=== PATIENT | female | born 1995 | race Caucasian/White ===

== ENCOUNTER 2019-03-11 14:52 | Emergency (ER) | payer BC ==
[2019-03-11] MEDS ORDERED: Lactated Ringers 1,000 ML IV ONE (16:09)
[2019-03-11] MEDS ORDERED: Sodium Chloride 0.9% 10 ML Syringe FLUSH PRN (16:09)
[2019-03-11] MEDS ORDERED: Ondansetron 4 MG/2 ML SDV IVPUSH ONE (16:09)
[2019-03-11] MEDS ORDERED: Famotidine 20 MG/2 ML SDV IVPUSH ONE (16:09)
--- NOTE | 2019-03-11 18:14 | EDM.PDOC ---
ED HPI GENERAL MEDICAL PROBLEM - General Chief Complaint: Gastrointestinal Problem Stated Complaint: VOMITING Time Seen by Provider: 03/11/19 16:18 Source of Information: Reports: Patient History Limitations: Reports: No Limitations - History of Present Illness INITIAL COMMENTS - FREE TEXT/NARRATIVE: 24 year old female presents for evaluation and treatment of nausea and vomiting. Reports symptoms started 3 days ago. Stared with decreased appetite, bloating, nausea and vomiting. At this time she is having nausea, vomiting, abdominal cramping and diarrhea. Reports one episode of diarrhea today, no blood in her stool. She state she is unable to keep anything down at this point. Has been taking tylenol and motrin for the abdominal pain. No ill contacts. No recent antibiotics. No recent travel. Unsure of LMP, is on OCPs and skips placebo pills. PCP is Dr. Newman - Related Data Allergies Allergy/AdvReac Type Severity Reaction Status Date / Time No Known Allergies Allergy Verified 03/11/19 15:18 Home Meds: Home Meds Control. 03/11/19 [History] Citalopram Hydrobromide [Celexa] 20 mg PO DAILY 03/11/19 [History] Loratadine [Claritin] 10 mg PO DAILY PRN 03/11/19 [History] Ondansetron [Zofran ODT] 4 mg PO Q6H PRN #15 tab.dis 03/11/19 [Rx] Past Medical History - Past Health History Medical/Surgical History: Denies Medical/Surgical History Social & Family History - Tobacco Use Smoking Status *Q: Never Smoker ED ROS GENERAL - Review of Systems Review Of Systems: See Below Constitutional: Reports: Fever (subjective), Decreased Appetite GI/Abdominal: Reports: Abdominal Pain (reports cramping), Diarrhea, Nausea, Vomiting. Denies: Bloody Stool : Reports: No Symptoms ED EXAM, GI/ABD - Physical Exam Exam: See Below Exam Limited By: No Limitations General Appearance: Alert, WD/WN, No Apparent Distress Throat/Mouth: Normal Inspection, Normal Voice, No Airway Compromise Neck: Normal Inspection Respiratory/Chest: No Respiratory Distress, Lungs Clear, Normal Breath Sounds Cardiovascular: Normal Peripheral Pulses, Regular Rate, Rhythm, No Murmur GI/Abdominal Exam: Soft, Non-Tender, No Distention, Abnormal Bowel Sounds ( hyperactive), Other (no pain at [place], negative psosas and obturator signs) Neurological: Alert, Oriented, Normal Cognition Psychiatric: Normal Affect, Normal Mood Skin Exam: Warm, Dry, Normal Color Course - Vital Signs Last Recorded V/S: Last Vital Signs Temp 98.1 F 03/11/19 15:19 Pulse 83 03/11/19 15:19 Resp 16 03/11/19 15:19 BP 117/80 03/11/19 15:19 Pulse Ox 96 03/11/19 15:19 - Orders/Labs/Meds Labs: Laboratory Tests 03/11/19 03/11/19 03/11/19 Range/Units 16:40 16:40 16:40 WBC 5.81 (3.98-10.04) K/mm3 RBC 4.23 (3.98-5.22) M/mm3 Hgb 13.6 (11.2-15.7) gm/L Hct 38.6 (34.1-44.9) % MCV 91.3 (79.4-94.8) fl MCH 32.2 (25.6-32.2) pg MCHC 35.2 (32.2-35.5) g/dl RDW Std Deviation 37.2 (36.4-46.3) fL Plt Count 351 (182-369) K/mm3 MPV 9.4 (9.4-12.3) fl Neut % (Auto) 39.8 (34.0-71.1) % Lymph % (Auto) 35.1 (19.3-51.7) % [place] % (Auto) 16.9 H (4.7-12.5) % Eos % (Auto) 7.4 H (0.7-5.8) Baso % (Auto) 0.3 (0.1-1.2) % Neut # (Auto) 2.31 (1.56-6.13) K/mm3 Lymph # (Auto) 2.04 (1.18-3.74) K/mm3 [place] # (Auto) 0.98 H (0.24-0.36) K/mm3 Eos # (Auto) 0.43 H (0.04-0.36) K/mm3 Baso # (Auto) 0.02 (0.01-0.08) K/mm3 Manual Slide Review Normal smear Sodium 139 (136-145) mEq/L Potassium 3.5 (3.5-5.1) mEq/L Chloride 104 (98-107) mEq/L Carbon Dioxide 23 (21-32) mEq/L Anion Gap 15.5 H (5-15) BUN 10 (7-18) mg/dL Creatinine 0.8 (0.55-1.02) mg/dL Est Cr Clr Drug Dosing 99.25 mL/min Estimated GFR (MDRD) > 60 (>60) mL/min BUN/Creatinine Ratio 12.5 L (14-18) Glucose 96 (74-106) mg/dL Calcium 8.6 (8.5-10.1) mg/dL Magnesium 1.8 (1.8-2.4) mg/dl Total Bilirubin 0.1 L (0.2-1.0) mg/dL AST 33 (15-37) U/L ALT 38 (14-59) U/L Alkaline Phosphatase 54 (46-116) U/L Total Protein 6.5 (6.4-8.2) g/dl Albumin 3.1 L (3.4-5.0) g/dl Globulin 3.4 gm/dL Albumin/Globulin Ratio 0.9 L (1-2) Lipase 168 (73-393) U/L HCG, Qual Negative (NEGATIVE) Urine Color (Yellow) Urine Appearance (Clear) Urine pH (5.0-8.0) Ur Specific [place] (1.005-1.030) Urine Protein (Negative) Urine Glucose (UA) (Negative) Urine Ketones (Negative) Urine Occult Blood (Negative) Urine Nitrite (Negative) Urine Bilirubin (Negative) Urine Urobilinogen (0.2-1.0) Ur Leukocyte Esterase (Negative) Urine RBC (0-5) /hpf Urine WBC (0-5) /hpf Ur Squamous Epith Cells (0-5) /hpf Urine Bacteria (FEW) /hpf Urine Mucus (FEW) /hpf 03/11/19 Range/Units 17:38 WBC (3.98-10.04) K/mm3 RBC (3.98-5.22) M/mm3 Hgb (11.2-15.7) gm/L Hct (34.1-44.9) % MCV (79.4-94.8) fl MCH (25.6-32.2) pg MCHC (32.2-35.5) g/dl RDW Std Deviation (36.4-46.3) fL Plt Count (182-369) K/mm3 MPV (9.4-12.3) fl Neut % (Auto) (34.0-71.1) % Lymph % (Auto) (19.3-51.7) % [place] % (Auto) (4.7-12.5) % Eos % (Auto) (0.7-5.8) Baso % (Auto) (0.1-1.2) % Neut # (Auto) (1.56-6.13) K/mm3 Lymph # (Auto) (1.18-3.74) K/mm3 [place] # (Auto) (0.24-0.36) K/mm3 Eos # (Auto) (0.04-0.36) K/mm3 Baso # (Auto) (0.01-0.08) K/mm3 Manual Slide Review Sodium (136-145) mEq/L Potassium (3.5-5.1) mEq/L Chloride (98-107) mEq/L Carbon Dioxide (21-32) mEq/L Anion Gap (5-15) BUN (7-18) mg/dL Creatinine (0.55-1.02) mg/dL Est Cr Clr Drug Dosing mL/min Estimated GFR (MDRD) (>60) mL/min BUN/Creatinine Ratio (14-18) Glucose (74-106) mg/dL Calcium (8.5-10.1) mg/dL Magnesium (1.8-2.4) mg/dl Total Bilirubin (0.2-1.0) mg/dL AST (15-37) U/L ALT (14-59) U/L Alkaline Phosphatase (46-116) U/L Total Protein (6.4-8.2) g/dl Albumin (3.4-5.0) g/dl Globulin gm/dL Albumin/Globulin Ratio (1-2) Lipase (73-393) U/L HCG, Qual (NEGATIVE) Urine Color Yellow (Yellow) Urine Appearance Slt cloudy H (Clear) Urine pH 6.0 (5.0-8.0) Ur Specific [place] 1.025 (1.005-1.030) Urine Protein 1+ H (Negative) Urine Glucose (UA) Negative (Negative) Urine Ketones Negative (Negative) Urine Occult Blood 1+ H (Negative) Urine Nitrite Negative (Negative) Urine Bilirubin Negative (Negative) Urine Urobilinogen 0.2 (0.2-1.0) Ur Leukocyte Esterase Negative (Negative) Urine RBC 5-10 H (0-5) /hpf Urine WBC 0-5 (0-5) /hpf Ur Squamous Epith Cells 5-10 H (0-5) /hpf Urine Bacteria Few (FEW) /hpf Urine Mucus Moderate H (FEW) /hpf Meds: Medications Discontinued Medications Generic Name Dose Route Start Last Admin Trade Name Freq PRN Reason Stop Dose Admin Famotidine 20 mg 03/11/19 16:09 03/11/19 16:44 Pepcid IVPUSH 03/11/19 16:10 20 mg ONETIME ONE Administration Lactated Ringer's 1,000 mls @ 999 mls/hr 03/11/19 16:09 03/11/19 16:40 Ringers, Lactated IV 03/11/19 17:09 999 mls/hr .BOLUS ONE Administration Ondansetron HCl 4 mg 03/11/19 16:09 03/11/19 16:44 Zofran IVPUSH 03/11/19 16:10 4 mg ONETIME ONE Administration Sodium Chloride 10 ml 03/11/19 16:09 03/11/19 16:43 Saline Flush FLUSH 10 ml ASDIRECTED PRN Administration Keep Vein Open - Re-Assessments/Exams Free Text/Narrative Re-Assessment/Exam: 03/11/19 18:08 Checked on the patient, she is feeling improved. Reviewed labs. Will discharge home at this time with medication for nausea. Discharge instructions his document. Departure - Departure Time of Disposition: 18:10 Disposition: Home, Self-Care 01 Condition: Good Clinical Impression: Viral gastroenteritis - Discharge Information *PRESCRIPTION DRUG MONITORING PROGRAM REVIEWED*: No *COPY OF PRESCRIPTION DRUG MONITORING REPORT IN PATIENT JOVANNY: No Prescriptions: Ondansetron [Zofran ODT] 4 mg PO Q6H PRN #15 tab.dis PRN Reason: Nausea Instructions: Viral Gastroenteritis, Adult, [id number] Referrals: Iris Boggs MD [Primary Care Provider] - Forms: ED Department Discharge Additional Instructions: take the zofran as prescribed. 1 tab sublingual every 6-8 hours prn nausea. Recommend clear fluids today and a bland diet tomorrow as tolerated. [place] diet recommendations include bread, rice, bananas, etc. Recommend a probiotic, these are available [id number]. expect your symptoms to last maybe a few more days, if symptoms persist follow- up with Dr. Newman. please return to the ER if your symptoms change or worsen.
== END 2019-03-11 18:24 | disposition home or self-care (01) ==
LOC: JD.ED 14:52
DX: A08.4 Viral intestinal infection, unspecified (principal); Z79.899 Other long term (current) drug therapy
CPT/HCPCS: 36415; 80053; 81001; 83690; 83735; 84703; 85025; 96361; 96374; 96375; 99284; J2405; J3490; J7120